=== PATIENT | female | born 1970 | race Caucasian/White ===

== ENCOUNTER 2024-10-19 14:05 | Inpatient (IN) ==
[2024-10-19 15:18] LABS: Appearance Urine Cloudy (Clear); Bacteria Urine Automated 3+ (None Seen); Cast Urine Automated >20 /lpf (0-2); Glucose Urine UA Negative (Negative)
[2024-10-19 15:19] LABS: RBC Urine Automated 0-2 /hpf (0-2)
[2024-10-19 15:21] LABS: Amphetamines+Metham, Urine Neg (Neg); MDMA (Ecstacy), Urine Neg (Neg); Marijuana, Urine Pos (Neg)
[2024-10-19 15:27] LABS: Hematocrit (blood only) 39.9 % (37.0-47.0); Hemoglobin 13.6 g/dl (12.0-16.0); Immature Granulocytes # (auto) 0.03 K/uL (0.01-0.20); Immature Granulocytes % (auto) 0.3 %; Mean Corpuscular Hemoglobin 30.0 pg (25.0-34.0); Mean Corpuscular Volume 88.1 fL (80.0-100.0); Platelet Count 215 K/uL (130-400); RDW Standard Deviation 39.4 fL (36.4-46.3); Red Blood Count 4.53 M/uL (4.20-5.40); White Blood Count 8.62 K/ul (4.8-10.8)
[2024-10-19 15:42] LABS: Acetaminophen < 3 ug/ml (10-30); Salicylate < 3.0 mg/dl (3.0-30)
[2024-10-19 15:50] LABS: Alanine Aminotransferase 17.0 U/L (7-52); Albumin Globulin Ratio 1.8 (0.9-2); Alkaline Phosphatase 54.0 U/L (34-104); Anion Gap 9.0 (3-11); Bilirubin,Total 0.6 mg/dl (0.2-1.0); Blood Urea Nitrogen 17.0 mg/dl (6-23); Calcium 9.4 mg/dl (8.6-10.3); Carbon Dioxide 26.0 mmol/L (21-32); Chloride 101.0 mmol/L (98-107); Creatinine Clr Calc Pharmacy 64.1 ml/min; Globulin 2.4 gm/dl (2.5-4.0); Glucose 119.0 mg/dl (70-99(Fasting)); Potassium 4.0 mmol/L (3.5-5.1); Sodium 136.0 mmol/L (136-145); Total Protein 6.7 gm/dl (6.0-8.3)
[2024-10-19 16:06] LABS: Thyroid Stimulating Hormone 0.403 uIu/ml (0.300-4.500)
--- NOTE | 2024-10-19 16:49 | Emergency Department Note ---
Impression & Plan Anxiety, Stress at home ED Provider Note NAME: NU RAHMAN AGE: 54 SEX: F : 1970 ARRIVES VIA: Walk-In INFORMANT: Patient, ED PROVIDER(S): Juanita Asencio MD CHIEF COMPLAINT: Medication changes, stress HPI: This is a 54-year-old female presenting for medication change request as well as increasing stress. Patient states that she has multiple stressors in her life, increased anxiety. She was on Effexor for many years. She was taken off of it temporarily and put back on. She had does not been helpful for her recently. She notes increasing stress, passive SI without active thoughts. She drinks 4 shots per day for multiple years. She takes marijuana daily multiple times a day as well. ROS: See above HPI for pertinent positives & negatives. A total of 10 systems reviewed and were otherwise negative. PAST MEDICAL HISTORY: See Below PAST SURGICAL HISTORY: See Below FAMILY HISTORY: See Below SOCIAL HISTORY: See Below HOME MEDICATIONS: See Below ALLERGIES: See Below VITALS: See Below PHYSICAL EXAMINATION: General: resting comfortably in no acute distress Head: Normocephalic and atraumatic Eyes: Normal inspection, extraocular muscles intact Ear, nose, throat: Normal external exam Neck: Normal range of motion Respiratory: speaking in full sentences, symmetric chest rise, no respiratory distress Cardiovascular: Regular rate/rhythm Extremities: moves all extremities Neuro: The patient awake and alert, appropriately conversive, symmetric faces, no focal deficits MEDICAL DECISION MAKING: This is a 54-year-old female presenting for medication request as well as increasing stress. -Patient present increasing stress. He is unclear if he has any underlying psychiatric condition including bipolar but she does not believe this is possible. -Bloodwork is reviewed showing no significant leukocytosis, anemia, electrolyte or creatinine abnormality - UTI is noted on urinalysis. Will treat with Keflex here. - Patient will benefit from inpatient stay, she is agreeable to this. Differential diagnosis: Schizophrenia, bipolar, kar, depression Independent History obtained from: Daughter Past Med/Surg History Problem List (Updated 10/19/24 @ 22:38 by Juanita Asencio MD) Stress at home (Acute) Anxiety (Acute) Carpal tunnel syndrome, right Overactive bladder Numbness and tingling in right hand Anxiety Cervical lymphadenopathy Injury of left leg (Acute) Encounter for IUD removal Encounter for IUD insertion Depression Hypertension Encounter for gynecological examination without abnormal finding Urinary urgency IUD (intrauterine device) in place Mirena 02/2020 Medical History IUD strings lost Surgical History History of delivery History of gynecologic surgery History of cryosurgery Family History Daughter Biliary atresia Brother Colorectal cancer Father Colorectal cancer Denies family history of Ovarian cancer Prostate cancer Myocardial infarction Breast cancer Social History Smoking Status: Never smoker Tobacco Type: Cigarettes Age Started Using Tobacco: 14; Age Quit Using Tobacco: 30; packs per day: 1; Second Hand Exposure: Yes; Do You Dip or Chew Tobacco: No; Hx Alcohol Use: Yes Alcohol type: hard liquor Alcohol Intake Frequency: 4 or More x per/Week Hx Substance Use: Yes Prescribed Medications: Marijuana Preferred Language: Armenian Communication Ability: Effective Visual Impairment: No Limitations Hearing Ability: Normal Grinding Operator Required: No Beliefs That Will Affect Care: None marital status: Current Living Situation: Spouse current occupational status: unemployed Feels Safe at Home: Yes Childhood Exposure to Second-Hand Smoke: Yes Diet: low carbohydrate and regular caffeine: Yes Dental Care, Regularly: Yes Physical Activity Frequency: Does not Exercise Seatbelt Use: always Sunscreen Use: No Gender Identity: Female Assistive Devices: Glasses Allergies Allergies Allergy/AdvReac Type Severity Reaction Status Date / Time No Known Allergies Allergy Unknown Verified 09/20/24 13:45 Home Meds Home Medications Medication Instructions Recorded Confirmed oxybutynin chloride 10 mg 10 mg PO HS 10/19/24 10/19/24 tablet,extended release 24 hr venlafaxine 150 mg tablet,extended 150 mg PO HS 10/19/24 10/19/24 release 24 hr Previous Rx's Medication Instructions Recorded losartan 100 mg tablet 50 mg (1/2 x 100 mg) PO DAILY #90 04/30/24 tabs Results & Data (ED) Vital Signs Vital Signs - 24 hr 10/19/24 14:08 10/19/24 14:32 10/19/24 15:51 Temperature 37.3 C Temperature Source Oral Pulse Rate 130 H 83 Pulse Rate [Apical] 101 H Respiratory Rate 18 Respiratory Effort / Characteristics Non-Labored Spontaneous Respiratory Depth Normal Respiratory Pattern Regular Blood Pressure 148/80 H Blood Pressure [Left Arm] Blood Pressure Mean 102 Blood Pressure Mean [Left Arm] Pulse Oximetry 95 Oxygen Delivery Method Room Air Sepsis Recent Fever Within 48 Hours No Sepsis New/Unexplained Change in Mental Status No Sepsis Action Taken by Nursing No Action Required 10/19/24 16:06 Temperature Temperature Source Pulse Rate Pulse Rate [Apical] 77 Respiratory Rate 21 Respiratory Effort / Characteristics Non-Labored Spontaneous Respiratory Depth Normal Respiratory Pattern Regular Blood Pressure Blood Pressure [Left Arm] 124/83 Blood Pressure Mean Blood Pressure Mean [Left Arm] 96 Pulse Oximetry 98 Oxygen Delivery Method Room Air Sepsis Recent Fever Within 48 Hours Sepsis New/Unexplained Change in Mental Status Sepsis Action Taken by Nursing Laboratory Data 10/19/24 14:56 10/19/24 14:56 Lab Results 10/19/24 10/19/24 Range/Units 14:24 14:56 WBC 8.62 (4.8-10.8) K/ul RBC 4.53 (4.20-5.40) M/uL Hgb 13.6 (12.0-16.0) g/dl Hct 39.9 (37.0-47.0) % MCV 88.1 (80.0-100.0) fL MCH 30.0 (25.0-34.0) pg MCHC 34.1 (32.0-36.0) g/dL RDW Std Deviation 39.4 (36.4-46.3) fL RDW Coeff of Roseann 12.2 (11.5-14.5) % Plt Count 215 (130-400) K/uL MPV 10.3 (9.4-12.4) fL Immature Gran % (Auto) 0.3 % Neut % (Auto) 81.1 % Lymph % (Auto) 12.2 % [place] % (Auto) 6.1 % Eos % (Auto) 0.1 % Baso % (Auto) 0.2 % Neut # (Auto) 6.98 H (1.40-6.50) K/uL Lymph # (Auto) 1.05 L (1.20-3.40) K/uL [place] # (Auto) 0.53 (0.11-0.59) K/uL Eos # (Auto) 0.01 (0.00-0.50) K/uL Baso # (Auto) 0.02 (0.00-0.20) K/uL Immature Gran # (Auto) 0.03 (0.01-0.20) K/uL Sodium 136 (136-145) mmol/L Potassium 4.0 (3.5-5.1) mmol/L Chloride 101 (98-107) mmol/L Carbon Dioxide 26 (21-32) mmol/L Anion Gap 9 (3-11) BUN 17 (6-23) mg/dl Creatinine 0.83 (0.6-1.2) mg/dl Est Cr Clr Drug Dosing 64.1 ml/min eGFR 83.72 BUN/Creatinine Ratio 20.5 H (10-20) Glucose 119 H (70-99(Fasting)) mg/dl Calcium 9.4 (8.6-10.3) mg/dl Total Bilirubin 0.6 (0.2-1.0) mg/dl AST 20 (13-39) U/L ALT 17 (7-52) U/L Alkaline Phosphatase 54 (34-104) U/L Total Protein 6.7 (6.0-8.3) gm/dl Albumin 4.3 (3.4-5.0) gm/dl Globulin 2.4 L (2.5-4.0) gm/dl Albumin/Globulin Ratio 1.8 (0.9-2) TSH 0.403 (0.300-4.500) uIu/ml Salicylates < 3.0 L (3.0-30) mg/dl Acetaminophen < 3 L (10-30) ug/ml Ethyl Alcohol mg/dL < 10.0 (<10.0) mg/dl SARS-CoV-2, RNA, NAAT NEGATIVE (NEGATIVE) Administered Medications Discontinued Medications Cephalexin HCl (Cephalexin 250 Mg Cap) 500 mg PO NOW ONE; Protocol Stop: 10/19/24 16:35 Last Admin: 10/19/24 16:50 Dose: 500 mg Documented By: JOANNA Discharge Plan Visit Data Chief Complaint: Mental Health Evaluation Stated Complaint: MED CHANGE ED Provider: Juanita Asencio Discharge Problem: Anxiety, Stress at home Patient Disposition: Admitted As Inpatient Condition: Fair Discharge Instructions Interventions: ED Discharge Assessment Last Done: 10/19/24 18:38
[2024-10-19] MEDS ORDERED: MAGNESIUM HYDROXIDE SUSP 30 ML UDC PO PRN (18:58)
[2024-10-19] MEDS ORDERED: BISMUTH SUBSALICYLATE 262 MG CHEW PO PRN (18:58)
[2024-10-19] MEDS ORDERED: SODIUM CHLORIDE 0.65% NA SOLN 45 ML (OCEAN) PRN (18:58)
[2024-10-19] MEDS ORDERED: ALUMINUM/MAGNESIUM SUSP 30 ML UDC PO PRN (18:58)
[2024-10-19] MEDS: LOSARTAN POTASSIUM 50 MG TAB PO SCH (22:51)
[2024-10-19] MEDS: VENLAFAXINE HCL XR 150 MG CAPXR PO SCH (22:52)
[2024-10-19] MEDS: MIRTAZAPINE TAB 15 MG TAB PO PRN (22:53)
--- NOTE | 2024-10-20 10:05 | History & Physical ---
Date of Service October 20, 2024 Impression / Recommendations Impression NU RAHMAN is a 54-year-old woman who currently lives in [place] with her and two children, has a history of anxiety and depression, and was admitted on 10/19/24 18:12 on a 201 voluntary commitment for worsening depression, anxiety and SI in the context of multiple stressors and previous venlafaxine withdrawal syndrome. Diagnostically consistent with major depressive disorder with anxious distress, generalized anxiety disorder with panic attacks, social anxiety disorder as well as alcohol use disorder with possible substance-induced mood symptoms as well as complicated bereavement. Discussed medication treatment options in detail. Discussed risks, benefits and alternatives. Patient would like to start and consented to mirtazapine for depression/anxiety/sleep, increasing venlafaxine XR for depression/anxiety, propranolol as off-label use for anxiety, gabapentin for nerve pain and off- label for alcohol use disorder and anxiety and naltrexone for alcohol use disorder and off-label for history of binge eating. Reviewed side effects including but not limited to: GI, SULLIVAN, increased BP with venlafaxine; sedation and weight gain with mirtazapine; dizziness and syncope with propranolol; potential for misuse, dizziness, sedation, cognitive effects with gabapentin; and GI symptoms and liver changes with naltrexone. The patient's audit score, use history suggests substance use disorder. Motivational interviewing was done as a brief intervention. Intervention was greater than 5 minutes in length and included assessing readiness to quit, advice on how to reduce or abstain and to set a specific goal for this hospitalization. cafe worker will also assist in anticipating barriers to reducing or abstaining from substance use and in problem-solving for solutions to those problems while arranging for referral to appropriate treatment. The patient is in contemplative stage with regards to transtheoretical model of change. Recommended decreasing consumption due to disinhibiting effects and potential for worsening psychiatric symptoms. Provided psychoeducation about psychiatric diagnoses and discussed recommendation for therapy which she is willing for. Overall I spent a total of 90 minutes for this admission including review of chart records, review of labwork, direct evaluation of the patient, counseling the patient, ordering medication, risk assessment, discussion with the psychiatric liason RN and documentation in the electronic health record. (1) Recurrent severe major depressive disorder with anxiety: (2) Depression with suicidal ideation: (3) Generalized anxiety disorder with panic attacks: (4) Social anxiety disorder: (5) Complicated bereavement: (6) Alcohol use disorder: (7) Carpal tunnel syndrome, right: (8) Overactive bladder: Plan 10/20/2024: The patient was admitted to the [facility] ([facility]) on q15 min checks (behavioral with suicide precautions) for safety. The patient will participate in group, recreational, and milieu therapies and will be offered additional individual and family sessions as clinically appropriate. -Increase Effexor XR to 225mg HS (she prefers HS dosing as limits GI upset) -Start mirtazapine 15mg HS -Start propranolol 10mg TID -Start gabapentin 300mg HS with 100mg TID prn for anxiety -Discontinue losartan -Consider naltrexone 25mg tomorrow with dinner -Start thiamine, multivitamin, Vit D -AWSS at risk for withdrawal -SW to explore options for outpatient therapy and potentially psychiatry Inventory Assets Strengths: supportive relationships, willing to get treatment Needs: safety and stabilization, medication adjustment, additional coping skills, increased outpatient services Suicide Risk Level Suicide Risk Level: High-Moderate (q15 min suicide checks) (increased depression and anxiety with SI but feels safe in the hospital and feels able to ask for support) Risk Factors Assessment Male: No : Yes Do You Have Access To A Gun?: Yes (her and son have multiple in the home, in safe but she can access) Health Problems: Yes Mental Health Diagnoses: Yes Substance Use Disorders: Yes Previous Attempt: No Family History of Suicide: No Previous Psychiatric Hospitalization: No Hopelessness: Yes Protective Factors Assessment Mu-Ism Beliefs: Yes : Yes Employed: Yes Stable Relationships: Yes Supportive Family: Yes Good Rapport with Provider: Yes Psychiatric History Identifying Data NU RAHMAN is a 54-year-old woman who currently lives in [place] with her and two children, has a history of anxiety and depression, and was admitted on 10/19/24 18:12 on a 201 voluntary commitment for worsening depression, anxiety and SI. Chief Complaint "This is the big factor of my breakdown, I just can't be around that many people and I just can't cope". History of Present Illness She presents for psychiatric admission for worsening depression, anxiety and SI in the context of multiple psychosocial stressors including family strain with siblings and her mother, of her brother, financial stress and new job of three weeks. Her depression and anxiety worsened after having to wean herself off of Effexor XR 150mg daily due to an insurance change in February 2024. By April her mood symptoms had spiraled to the point that she quit her job of 16 years due to increased stress and she thinks this was in large part due to feeling overwhelmed and inability to focus. She identifies this as a "breakdown". At the end of May she was able to get a new prescription for Effexor and got back to her previous dose and started to feel better by mid summer. But then she had to get a new job and this has been very overwhelming especially because "the medication isn't working like it was". Her job has given her intense anxiety due to being around so many people every day and the stress of having to do a lot on the computer. 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 She endorses depressive symptoms including social isolation, tearfulness, anhedonia, decreased motivation, self-guilt, helplessness, hopelessness, decreased appetite, and decreased sleep with difficulty falling and staying asleep. SI has been occurring since March. She endorses symptoms of anxiety including generalized worries, shakiness, muscle stiffness with headaches, stomach upset, easily overwhelmed and panic attacks every few days. Struggles a lot with social anxiety and low self-worth and low self-esteem. She also endorses PTSD symptoms of flashbacks. She reports having lost about 80lbs over the course of the year and now with restrictive eating. Hasn't eaten anything in two days. She typically eats yogurt for lunch and then eats a little bit at dinner. Some days she eats more. She struggles with moderation. Denies any purging. She drinks alcohol to feel "numb" or fall asleep. Most weekends she drinks almost all day (some weekends 3/4 of a bottle of vodka). Before starting her new job she went 5 days without alcohol and a few days after starting work but then as she got into a routine she started drinking in the evenings again. Typically 2-4 shots of liquor starting around 4pm. She didn't drink any alcohol for almost 20 years but she started drinking heavily after her brother 5 years ago to cope with grief. She is currently prescribed Effexor 150mg HS. Psychiatric ROS notable for no current nor history of symptoms of kar, psychosis, OCD nor eating disorder. History of restrictive eating. No history of self-harm. Past Psychiatric History Current Psychiatric Diagnosis: PTSD, Depression, Anxiety Outpatient Services: none Previous Psych Admissions: none Do You Have Access To A Gun?: Yes (her and son have multiple in the home, in safe but she can access) History of Previous Suicide Attempt: No Past Medication Trials: took Effexor XR 150mg for 20 years with good effect Past Head Trauma/Neuro History History of Concussion/Seizure: No Allergies Allergy/AdvReac Type Severity Reaction Status Date / Time No Known Allergies Allergy Unknown Verified 10/20/24 11:37 Home Medications Medication Instructions Recorded Confirmed Type losartan 100 mg tablet 50 mg (1/2 x 100 mg) PO DAILY #90 04/30/24 10/19/24 Rx tabs oxybutynin chloride 10 mg 10 mg PO HS 10/19/24 10/19/24 History tablet,extended release 24 hr venlafaxine 150 mg tablet,extended 150 mg PO HS 10/19/24 10/19/24 History release 24 hr Family History Family History of: Depression, Anxiety, Alcoholism/Drug Abuse (siblings) and Suicide Completion (boyfriend by suicide years ago) Family Mental Health History Comment: Mother, Brother Alcohol History Hx of Alcohol Use Over the Past 12 Months: Yes (daily use "to help sleep") AUDIT Total Score: 8 Likes that it makes her "numb", "helps with sleep", nothing that she doesn't like about it. She does feel like the amount she uses is a problem but she wants to drink and feel numb. Smoking Use Have You Smoked or Used Tobacco Products in the Last 30 Days: No Smoking Status: Never smoker Substance History Hx of Prescription Med Misuse Over the Past 12 Months: No Hx of Over the Counter Med Misuse Over the Past 12 Months: No Hx of Inhalent Misuse Over the Past 12 Months: No Hx of Organic Substance Use Over the Past 12 Months: Yes (Medical Marijuana daily) Hx of Illegal Substances/Street Drug Use Over Past 12 Months: No Problems as a Result of Past Substance Use: None Identified Problems as a Result of Past Substance Use Comments: negative impact on mood/mental health Personal History Living Arrangements: Home Highest Grade Completed: High School Graduate 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 Marital Status: Beliefs That Will Affect Care: None Current Legal Problems: No Hx Legal Problems: No Hx Traumatic Life Events: Yes Patient History Medical History IUD strings lost IUD seen U/S 01/2020 Surgical History History of delivery History of gynecologic surgery vaginal sling operation for stress incontinence History of cryosurgery Family History Daughter Biliary atresia Brother Colorectal cancer Father Colorectal cancer Denies family history of Ovarian cancer Prostate cancer Myocardial infarction Breast cancer Social History Smoking Status: Never smoker Tobacco Type: Cigarettes Age Started Using Tobacco: 14; Age Quit Using Tobacco: 30; packs per day: 1; Second Hand Exposure: Yes; Do You Dip or Chew Tobacco: No; Hx Alcohol Use: Yes Alcohol type: hard liquor Alcohol Intake Frequency: 4 or More x per/Week Hx Substance Use: Yes Prescribed Medications: Marijuana Preferred Language: Tristanian Communication Ability: Effective Visual Impairment: No Limitations Hearing Ability: Normal Slunk Skin Curer Required: No Beliefs That Will Affect Care: None marital status: Current Living Situation: Spouse current occupational status: unemployed Feels Safe at Home: Yes Childhood Exposure to Second-Hand Smoke: Yes Diet: low carbohydrate and regular caffeine: Yes Dental Care, Regularly: Yes Physical Activity Frequency: Does not Exercise Seatbelt Use: always Sunscreen Use: No Gender Identity: Female Assistive Devices: Glasses Review of Systems Review of Systems: All systems reviewed & are unremarkable except as noted in HPI & below (carpal tunnel, headaches) Physical Exam Psychiatric: Orientation: alert and oriented x 3 Apperance: appropriately dressed and appropriately groomed Eye Contact: + fair eye contact Motor Behavior: no abnormal motor movements Speech: normal rate/rhythm/volume of speech Affect: + depressed affect and + anxious affect Mood: + depressed mood and + anxious mood Thought Process: goal directed thought process Thought Content: + cognitive distortions, reality based without delusions, + worthlessness and + guilt Suicidal Thoughts: denies suicidal plan and denies suicidal intent; + reports suicidal thoughts Homicidal Thoughts: denies homi cidal thoughts Hallucinations: no auditory hallucinations and no visual hallucinations Cognition: recent memory grossly intact, remote memory grossly intact, attention grossly intact and language grossly intact Estimated Intelligence: consistent with education level Insight: + fair insight Judgment: + fair judgement Vital Signs (Past 24 Hours): Last Vital Signs Temp 37.2 C 10/20/24 06:11 Pulse 104 H 10/20/24 06:11 Resp 18 10/20/24 06:11 BP 139/82 10/20/24 06:11 Pulse Ox 98 10/20/24 06:11 O2 Del Method Room Air 10/20/24 06:11 Exam Statement: A physical exam was performed in the ED by Dr. Asencio for the purposes of medical clearance. I accept that physical as correct and adequate for the purposes of the inpatient physical exam. Results & Data ([facility]) Laboratory Results Laboratory Results - last 24 hr 10/19/24 10/19/24 10/19/24 14:24 14:56 Unknown WBC 8.62 RBC 4.53 Hgb 13.6 Hct 39.9 MCV 88.1 MCH 30.0 MCHC 34.1 RDW Std Deviation 39.4 RDW Coeff of Roseann 12.2 Plt Count 215 MPV 10.3 Immature Gran % (Auto) 0.3 Neut % (Auto) 81.1 Lymph % (Auto) 12.2 [place] % (Auto) 6.1 Eos % (Auto) 0.1 Baso % (Auto) 0.2 Neut # (Auto) 6.98 H Lymph # (Auto) 1.05 L [place] # (Auto) 0.53 Eos # (Auto) 0.01 Baso # (Auto) 0.02 Immature Gran # (Auto) 0.03 Sodium 136 Potassium 4.0 Chloride 101 Carbon Dioxide 26 Anion Gap 9 BUN 17 Creatinine 0.83 Est Cr Clr Drug Dosing 64.1 eGFR 83.72 BUN/Creatinine Ratio 20.5 H Glucose 119 H Calcium 9.4 Total Bilirubin 0.6 AST 20 ALT 17 Alkaline Phosphatase 54 Total Protein 6.7 Albumin 4.3 Globulin 2.4 L Albumin/Globulin Ratio 1.8 TSH 0.403 Urine Color Yellow Urine Appearance Cloudy A Urine pH 5.5 Ur Specific [place] 1.023 Urine Protein 2+ H Urine Glucose (UA) Negative Urine Ketones Trace H Urine Blood Negative Urine Nitrite Positive A Urine Bilirubin Negative Urine Urobilinogen Negative Ur Leukocyte Esterase 1+ H Urine WBC (Auto) 11-20 H Urine RBC (Auto) 0-2 U Hyaline Cast (Auto) >20 H U Epithel Cells (Auto) 11-20 H Urine Bacteria (Auto) 3+ H Calcium Oxalate Crystal Present A Hyaline Casts Present A Urine Mucus Present A Urine Comment Salicylates < 3.0 L Urine Opiates Screen Neg Ur Methadone, Qual Neg Urine Fentanyl Screen Neg Acetaminophen < 3 L Urine Barbiturates Neg Ur Phencyclidine (PCP) Neg U Amphetamin/Meth Scrn Neg MDMA (Ecstasy) Screen Neg U Benzodiazepines Scrn Neg Ur Cocaine Metabolite Neg U Marijuana (THC) Screen Pos H U Marijuana THC Carboxy Pending Drug Screen Comment Pending Ethyl Alcohol mg/dL < 10.0 SARS-CoV-2, RNA, NAAT NEGATIVE Current Inpatient Medications Current Inpatient Medications: Current Inpatient Medications Acetaminophen (Acetaminophen 325 Mg Tab) 650 mg PO Q4H PRN PRN Reason: Headache or Minor Fever Stop: 11/18/24 18:57 Al Hydrox/Mg Hydrox/Simethicone (Aluminum/Magnesium Susp 30 Ml Udc) 30 ml PO Q4H PRN PRN Reason: GI Upset Stop: 11/18/24 18:57 Bismuth Subsalicylate (Bismuth Subsalicylate 262 Mg Chew) 2 tab PO Q30M PRN PRN Reason: Loose Stool/Diarrhea Stop: 11/18/24 18:57 Hydroxyzine HCl (Hydroxyzine Hcl 25 Mg Tab) 50 mg PO HSZ PRN PRN Reason: Insomnia Stop: 11/18/24 18:57 Hydroxyzine HCl (Hydroxyzine Hcl 25 Mg Tab) 25 mg PO Q4H PRN PRN Reason: Anxiety Stop: 11/18/24 18:57 Losartan Potassium (Losartan Potassium 50 Mg Tab) 50 mg PO HS L[place] Stop: 11/18/24 21:59 Last Admin: 10/19/24 22:51 Dose: 50 mg Magnesium Hydroxide (Magnesium Hydroxide Susp 30 Ml Udc) 30 ml PO DAILY PRN PRN Reason: Constipation Stop: 11/18/24 18:57 Mirtazapine (Mirtazapine Tab 15 Mg Tab) 15 mg PO HS PRN PRN Reason: Insomnia Stop: 11/18/24 21:59 Last Admin: 10/19/24 22:53 Dose: 15 mg Oxybutynin Chloride (Oxybutynin Chloride 5 Mg Tab) 10 mg PO HS L[place] Stop: 11/18/24 22:30 Last Admin: 10/19/24 22:52 Dose: 10 mg Sodium Chloride (Sodium Chloride 0.65% Na Soln 45 Ml ([place])) 1 - 2 sprays NA PRN PRN PRN Reason: Nasal Dryness/Congestion Stop: 11/18/24 18:57 Venlafaxine HCl (Venlafaxine Hcl Xr 150 Mg Capxr) 150 mg PO HS L[place] Stop: 11/18/24 22:44 Last Admin: 10/19/24 22:52 Dose: 150 mg
[2024-10-20] MEDS ORDERED: GABAPENTIN 100 MG CAP PO PRN (12:17)
[2024-10-20] MEDS: CHOLECALCIFEROL 25 MCG (1000 UNITS) TAB PO SCH (12:42)
[2024-10-20] MEDS: PROPRANOLOL HCL 10 MG TAB PO SCH (12:42)
[2024-10-20] MEDS: CEROVITE ADV FORMULA TAB PO SCH (12:42)
[2024-10-20] MEDS: THIAMINE HCL 50 MG TABLET PO SCH (12:42)
[2024-10-20] MEDS: ACETAMINOPHEN 325 MG TAB PO PRN (12:46)
[2024-10-20] MEDS ORDERED: Ativan PO Alcohol Withdrawal--Active Protocol PO PRN (12:57)
[2024-10-20] MEDS ORDERED: LORazepam 1 MG TAB PO PRN ×3 (12:57)
[2024-10-20] MEDS: LOSARTAN POTASSIUM 50 MG TAB PO SCH (15:02)
[2024-10-20] MEDS: OXYBUTYNIN CHLORIDE XL 5 MG TABCR PO SCH (20:07)
[2024-10-20] MEDS: MIRTAZAPINE TAB 15 MG TAB PO SCH (20:08)
[2024-10-20] MEDS: GABAPENTIN 300 MG CAP PO SCH (20:08)
[2024-10-20] MEDS: VENLAFAXINE HCL XR 75 MG CAPXR PO SCH (20:08)
[2024-10-20] MEDS ORDERED: VENLAFAXINE HCL XR 150 MG CAPXR PO SCH (22:00)
--- NOTE | 2024-10-21 09:08 | Psychiatric Progress Note ---
Date of Service October 21, 2024 Impression / Recommendations Impression NU RAHMAN is a 54-year-old woman who currently lives in [place] with her and two children, has a history of anxiety and depression, and was admitted on 10/19/24 18:12 on a 201 voluntary commitment for worsening depression, anxiety and SI in the context of multiple stressors and previous venlafaxine withdrawal syndrome. Diagnostically consistent with major depressive disorder with anxious distress, generalized anxiety disorder with panic attacks, social anxiety disorder as well as alcohol use disorder with possible substance-induced mood symptoms as well as complicated bereavement. A: Ongoing depression and anxiety. Slept better last night with new medications. Tolerating changes so far. Reviewed urine microbiology with pharmacy who recommends no antibiotic at this time given absence of symptoms. If symptoms emerged then recommended treatment would be: fosfomycin 3g po for a single dose. She consents to starting naltrexone. MNPR due to contact precautions and need for private bathroom due to EColi with ESBL from urine culture Overall, I spent a total of 38 minutes on this case including meeting with the patient, reviewing the chart, nursing report, multidisciplinary team meeting, orders, and documentation and discussion with pharmacist. (1) Recurrent severe major depressive disorder with anxiety: (2) Depression with suicidal ideation: (3) Generalized anxiety disorder with panic attacks: (4) Social anxiety disorder: (5) Complicated bereavement: (6) Alcohol use disorder: (7) Carpal tunnel syndrome, right: (8) Overactive bladder: Plan 10/21/2024: -Start naltrexone 25mg po with dinner 10/20/2024: The patient was admitted to the [facility] ([facility] mental health unit) on q15 min checks (behavioral with suicide precautions) for safety. The patient will participate in group, recreational, and milieu therapies and will be offered additional individual and family sessions as clinically appropriate. -Increase Effexor XR to 225mg HS (she prefers HS dosing as limits GI upset) -Start mirtazapine 15mg HS -Start propranolol 10mg TID -Start gabapentin 300mg HS with 100mg TID prn for anxiety -Discontinue losartan -Consider naltrexone 25mg tomorrow with dinner -Start thiamine, multivitamin, Vit D -AWSS at risk for withdrawal -SW to explore options for outpatient therapy and potentially psychiatry Inventory Assets Strengths: supportive relationships, willing to get treatment Needs: safety and stabilization, medication adjustment, additional coping skills, increased outpatient services Suicide Risk Level Suicide Risk Level: High-Moderate (q15 min suicide checks) (increased depression and anxiety with SI but feels safe in the hospital and feels able to ask for support) Risk Factors Assessment Male: No : Yes Do You Have Access To A Gun?: Yes (n/a) Health Problems: Yes Mental Health Diagnoses: Yes Substance Use Disorders: Yes Previous Attempt: No Family History of Suicide: No Previous Psychiatric Hospitalization: No Hopelessness: Yes Protective Factors Assessment Je[employer] Beliefs: Yes : Yes Employed: Yes Stable Relationships: Yes Supportive Family: Yes Good Rapport with Provider: Yes Interval History Identifying Information NU RAHMAN is a 54-year-old woman who currently lives in [place] with her and two children, has a history of anxiety and depression, and was admitted on 10/19/24 18:12 on a 201 voluntary commitment for worsening depression, anxiety and SI. Chief Complaint "I was sad this morning but I talked to people and got some stuff out". Review of Systems Sleep Information Total Hours of Sleep: 8.75 Meal Information Percent Meal Consumed - Breakfast: 75 Percent Meal Consumed - Lunch: 90 Percent Meal Consumed - Dinner: 100 Subjective Subjective Patient was seen & assessed and interval progress reviewed with treatment team. Slept well. Attending groups. Headache yesterday. Low mood this morning with sadness and anxiety which she attributes in part to guilt about not being at work and not being able to work. She isn't sure if propranolol is helping with physical anxiety symptoms. Reviewed option to use gabapentin prn. Did find some relief from anxiety after processing with staff. Today reports some ongoing neck muscle tension and general weakness but otherwise no physical complaints and no side effects from the medications so far. She slept well overnight and doesn't recall having prominent carpel tunnel pain issues. Reviewed results of urine microbiology. She reports urinary frequency but she has this at baseline, she denies any burning with urination nor pain. Physical Exam Psychiatric Orientation: alert and oriented x 3 Apperance: appropriately dressed and appropriately groomed Eye Contact: + fair eye contact Motor Behavior: no abnormal motor movements Speech: normal rate/rhythm/volume of speech Affect: + depressed affect and + anxious affect Mood: + depressed mood and + anxious mood Thought Process: goal directed thought process Thought Content: + cognitive distortions, reality based without delusions, + worthlessness and + guilt Suicidal Thoughts: denies suicidal plan and denies suicidal intent; + reports suicidal thoughts Homicidal Thoughts: denies homicidal thoughts Hallucinations: no auditory hallucinations and no visual hallucinations Cognition: recent memory grossly intact, remote memory grossly intact, attention grossly intact and language grossly intact Estimated Intelligence: consistent with education level Insight: + fair insight Judgment: + fair judgement Vital Signs (Past 24 Hours) Last Vital Signs Temp 36.4 C L 10/21/24 06:17 Pulse 83 10/21/24 06:17 Resp 18 10/21/24 06:17 BP 124/72 10/21/24 06:25 Pulse Ox 99 10/21/24 06:17 O2 Del Method Room Air 10/21/24 06:17 Results & Data ([facility]) Current Inpatient Medications Current Inpatient Medications: Current Inpatient Medications Acetaminophen (Acetaminophen 325 Mg Tab) 650 mg PO Q4H PRN PRN Reason: Headache or Minor Fever Stop: 11/18/24 18:57 Last Admin: 10/20/24 12:46 Dose: 650 mg Al Hydrox/Mg Hydrox/Simethicone (Aluminum/Magnesium Susp 30 Ml Udc) 30 ml PO Q4H PRN PRN Reason: GI Upset Stop: 11/18/24 18:57 Bismuth Subsalicylate (Bismuth Subsalicylate 262 Mg Chew) 2 tab PO Q30M PRN PRN Reason: Loose Stool/Diarrhea Stop: 11/18/24 18:57 Gabapentin (Gabapentin 300 Mg Cap) 300 mg PO BID LOURDES Stop: 11/19/24 20:59 Last Admin: 10/21/24 08:30 Dose: 300 mg Gabapentin (Gabapentin 100 Mg Cap) 100 mg PO TID PRN PRN Reason: panic attack/anxiety Stop: 11/19/24 13:59 Hydroxyzine HCl (Hydroxyzine Hcl 25 Mg Tab) 50 mg PO HSZ PRN PRN Reason: Insomnia Stop: 11/18/24 18:57 Hydroxyzine HCl (Hydroxyzine Hcl 25 Mg Tab) 25 mg PO Q4H PRN PRN Reason: Anxiety Stop: 11/18/24 18:57 Lorazepam (Lorazepam 1 Mg Tab) 1 mg PO UD PRN; Protocol PRN Reason: EtOH Withdrawal AWSS Score 6,7 Stop: 11/19/24 12:56 Lorazepam (Lorazepam 1 Mg Tab) 3 mg PO ONCE PRN; Protocol PRN Reason: EtOH Withdrawal AWSS Score 10 & above Lorazepam (Lorazepam 1 Mg Tab) 2 mg PO UD PRN; Protocol PRN Reason: EtOH Withdrawal AWSS Score 8,9 Stop: 11/19/24 12:56 Magnesium Hydroxide (Magnesium Hydroxide Susp 30 Ml Udc) 30 ml PO DAILY PRN PRN Reason: Constipation Stop: 11/18/24 18:57 Mirtazapine (Mirtazapine Tab 15 Mg Tab) 15 mg PO HS LOURDES Stop: 11/19/24 21:59 Last Admin: 10/20/24 20:08 Dose: 15 mg Multivitamins/Minerals (Cerovite Adv Formula Tab) 1 tab PO QAM LOURDES Stop: 11/19/24 12:29 Last Admin: 10/21/24 08:30 Dose: 1 tab Oxybutynin Chloride (Oxybutynin Chloride Xl 5 Mg Tabcr) 10 mg PO HS LOURDES Stop: 11/19/24 21:59 Last Admin: 10/20/24 20:07 Dose: 10 mg Propranolol HCl (Propranolol Hcl 10 Mg Tab) 10 mg PO TID LOURDES Stop: 11/19/24 13:59 Last Admin: 10/21/24 08:30 Dose: 10 mg Sodium Chloride (Sodium Chloride 0.65% Na Soln 45 Ml ([place])) 1 - 2 sprays NA PRN PRN PRN Reason: Nasal Dryness/Congestion Stop: 11/18/24 18:57 Thiamine HCl (Thiamine Hcl 50 Mg Tablet) 50 mg PO QAM LOURDES Stop: 11/19/24 12:29 Last Admin: 10/21/24 08:31 Dose: 50 mg Venlafaxine HCl (Venlafaxine Hcl Xr 75 Mg Capxr) 225 mg PO HS LOURDES Stop: 11/19/24 21:59 Last Admin: 10/20/24 20:08 Dose: 225 mg Vitamin D (Cholecalciferol 25 Mcg (1000 Units) Tab) 25 mcg PO QAM LOURDES Stop: 11/19/24 12:29 Last Admin: 10/21/24 08:30 Dose: 25 mcg Mental Health & Subst Abuse Tx Psychiatrist Time of Appointment with Psychiatrist: n/a Therapist Name of Therapist: n/a Time of Therapist Appointment: n/a Gaming Manager Name of Gaming Manager: n/a Time of Appointment with Gaming Manager: n/a Post Discharge Appointments Primary Care Physician Name Of Family Doctor/PCP: Swetha Grant
[2024-10-21] MEDS: NALTREXONE HCL 50 MG TAB PO SCH (17:32)
--- NOTE | 2024-10-22 08:38 | Psychiatric Progress Note ---
Date of Service October 22, 2024 Impression / Recommendations Impression NU RAHMAN is a 54-year-old woman who currently lives in [place] with her and two children, has a history of anxiety and depression, and was admitted on 10/19/24 18:12 on a 201 voluntary commitment for worsening depression, anxiety and SI in the context of multiple stressors and previous venlafaxine withdrawal syndrome. Diagnostically consistent with major depressive disorder with anxious distress, generalized anxiety disorder with panic attacks, social anxiety disorder as well as alcohol use disorder with possible substance-induced mood symptoms as well as complicated bereavement. A: Ongoing depression and anxiety but showing some slight improvement from propranolol and sleeping better. Support meeting tomorrow is likely to increase her anxiety as it will bring up many painful things she has been coping with via avoidance or drinking. AWSS discontinued given she has not been scoring. MNPR due to contact precautions and need for private bathroom due to EColi with ESBL from urine culture Overall, I spent a total of 36 minutes on this case including meeting with the patient, reviewing the chart, nursing report, multidisciplinary team meeting, orders, and documentation and discussion with pharmacist. (1) Recurrent severe major depressive disorder with anxiety: (2) Depression with suicidal ideation: (3) Generalized anxiety disorder with panic attacks: (4) Social anxiety disorder: (5) Complicated bereavement: (6) Alcohol use disorder: (7) Carpal tunnel syndrome, right: (8) Overactive bladder: Plan 10/22/2024: -Continue current medications and tx plan 10/21/2024: -Start naltrexone 25mg po with dinner 10/20/2024: The patient was admitted to the [facility] ([facility] mental health unit) on q15 min checks (behavioral with suicide precautions) for safety. The patient will participate in group, recreational, and milieu therapies and will be offered additional individual and family sessions as clinically appropriate. -Increase Effexor XR to 225mg HS (she prefers HS dosing as limits GI upset) -Start mirtazapine 15mg HS -Start propranolol 10mg TID -Start gabapentin 300mg HS with 100mg TID prn for anxiety -Discontinue losartan -Consider naltrexone 25mg tomorrow with dinner -Start thiamine, multivitamin, Vit D -AWSS at risk for withdrawal -SW to explore options for outpatient therapy and potentially psychiatry Inventory Assets Strengths: supportive relationships, willing to get treatment Needs: safety and stabilization, medication adjustment, additional coping skills, increased outpatient services Suicide Risk Level Suicide Risk Level: Moderate (q15 min suicide checks) (increased depression and anxiety with SI but feels safe in the hospital and feels able to ask for support) Risk Factors Assessment Male: No : Yes Do You Have Access To A Gun?: Yes (n/a) Health Problems: Yes Mental Health Diagnoses: Yes Substance Use Disorders: Yes Previous Attempt: No Family History of Suicide: No Previous Psychiatric Hospitalization: No Hopelessness: Yes Protective Factors Assessment [employer] Beliefs: Yes : Yes Employed: Yes Stable Relationships: Yes Supportive Family: Yes Good Rapport with Provider: Yes Interval History Identifying Information NU RAHMAN is a 54-year-old woman who currently lives in [place] with her and two children, has a history of anxiety and depression, and was admitted on 10/19/24 18:12 on a 201 voluntary commitment for worsening depression, anxiety and SI. Chief Complaint "If I start thinking about I stuff I get sad". Review of Systems Sleep Information Total Hours of Sleep: 7.5 Meal Information Percent Meal Consumed - Breakfast: 75 Percent Meal Consumed - Lunch: 90 Percent Meal Consumed - Dinner: 100 Subjective Subjective Patient was seen & assessed and interval progress reviewed with nursing and social work. Slept well. Attending groups. Fluctuations in her mood, feels better when processing and distracted but depression and anxiety worsen when she thinks about thigns waiting for her outside the hospital like her job and anticipating discussion with her and son. Discusses that her son lives only a few minutes away but that she barely sees her grandson due to family issues. She also hopes her will be willing to make some changes so that their marriage can be better. Feels the medications are helping lessen her anxiety. Denies any side effects. Physical Exam Psychiatric Orientation: alert and oriented x 3 Apperance: appropriately dressed and appropriately groomed Eye Contact: + fair eye contact Motor Behavior: no abnormal motor movements Speech: normal rate/rhythm/volume of speech Affect: + depressed affect and + anxious affect Mood: + depressed mood and + anxious mood Thought Process: goal directed thought process Thought Content: + cognitive distortions, reality based without delusions, + worthlessness and + guilt Suicidal Thoughts: denies suicidal plan and denies suicidal intent; + reports suicidal thoughts Homicidal Thoughts: denies homicidal thoughts Hallucinations: no auditory hallucinations and no visual hallucinations Cognition: recent memory grossly intact, remote memory grossly intact, attention grossly intact and language grossly intact Estimated Intelligence: consistent with education level Insight: + fair insight Judgment: + fair judgement Vital Signs (Past 24 Hours) Last Vital Signs Temp 36.6 C 10/22/24 06:49 Pulse 79 10/22/24 06:49 Resp 18 10/22/24 06:49 BP 117/75 10/22/24 06:49 Pulse Ox 97 10/22/24 06:49 O2 Del Method Room Air 10/22/24 06:49 Results & Data ([facility]) Current Inpatient Medications Current Inpatient Medications: Current Inpatient Medications Acetaminophen (Acetaminophen 325 Mg Tab) 650 mg PO Q4H PRN PRN Reason: Headache or Minor Fever Stop: 11/18/24 18:57 Last Admin: 10/20/24 12:46 Dose: 650 mg Al Hydrox/Mg Hydrox/Simethicone (Aluminum/Magnesium Susp 30 Ml Udc) 30 ml PO Q4H PRN PRN Reason: GI Upset Stop: 11/18/24 18:57 Bismuth Subsalicylate (Bismuth Subsalicylate 262 Mg Chew) 2 tab PO Q30M PRN PRN Reason: Loose Stool/Diarrhea Stop: 11/18/24 18:57 Gabapentin (Gabapentin 300 Mg Cap) 300 mg PO BID LOURDES Stop: 11/19/24 20:59 Last Admin: 10/21/24 20:20 Dose: 300 mg Gabapentin (Gabapentin 100 Mg Cap) 100 mg PO TID PRN PRN Reason: panic attack/anxiety Stop: 11/19/24 13:59 Hydroxyzine HCl (Hydroxyzine Hcl 25 Mg Tab) 50 mg PO HSZ PRN PRN Reason: Insomnia Stop: 11/18/24 18:57 Hydroxyzine HCl (Hydroxyzine Hcl 25 Mg Tab) 25 mg PO Q4H PRN PRN Reason: Anxiety Stop: 11/18/24 18:57 Magnesium Hydroxide (Magnesium Hydroxide Susp 30 Ml Udc) 30 ml PO DAILY PRN PRN Reason: Constipation Stop: 11/18/24 18:57 Mirtazapine (Mirtazapine Tab 15 Mg Tab) 15 mg PO HS LOURDES Stop: 11/19/24 21:59 Last Admin: 10/21/24 20:20 Dose: 15 mg Multivitamins/Minerals (Cerovite Adv Formula Tab) 1 tab PO QAM LOURDES Stop: 11/19/24 12:29 Last Admin: 10/21/24 08:30 Dose: 1 tab Naltrexone HCl (Naltrexone Hcl 50 Mg Tab) 25 mg PO DAILYBD LOURDES Stop: 11/20/24 17:14 Last Admin: 10/21/24 17:32 Dose: 25 mg Oxybutynin Chloride (Oxybutynin Chloride Xl 5 Mg Tabcr) 10 mg PO HS LOURDES Stop: 11/19/24 21:59 Last Admin: 10/21/24 20:19 Dose: 10 mg Propranolol HCl (Propranolol Hcl 10 Mg Tab) 10 mg PO TID LOURDES Stop: 11/19/24 13:59 Last Admin: 10/21/24 20:20 Dose: 10 mg Sodium Chloride (Sodium Chloride 0.65% Na Soln 45 Ml ([place])) 1 - 2 sprays NA PRN PRN PRN Reason: Nasal Dryness/Congestion Stop: 11/18/24 18:57 Thiamine HCl (Thiamine Hcl 50 Mg Tablet) 50 mg PO QAM LOURDES Stop: 11/19/24 12:29 Last Admin: 10/21/24 08:31 Dose: 50 mg Venlafaxine HCl (Venlafaxine Hcl Xr 75 Mg Capxr) 225 mg PO HS LOURDES Stop: 11/19/24 21:59 Last Admin: 10/21/24 20:20 Dose: 225 mg Vitamin D (Cholecalciferol 25 Mcg (1000 Units) Tab) 25 mcg PO QAM LOURDES Stop: 11/19/24 12:29 Last Admin: 10/21/24 08:30 Dose: 25 mcg Mental Health & Subst Abuse Tx Psychiatrist [facility] Date Of Appointment With Psychiatric Provider: 10/31/24 Time of Appointment with Psychiatrist: 9:15 Psychiatric Appointment Comment: Be there at 8:15 to complete paperwork prior to appointment Therapist Name of Therapist: n/a Time of Therapist Appointment: n/a Instructional Writer Name of Instructional Writer: n/a Time of Appointment with Instructional Writer: n/a Post Discharge Appointments Primary Care Physician [facility] Date of Future Appointment with PCP: 10/31/24 Time of Appointment with PCP: 3:40p Provider Appointment Comment: [address], [place] [address] Contact Information Discharge Discharge Address: [facility] [address], [place] [id number]
[2024-10-23 06:48] VITALS: RESP 16
--- NOTE | 2024-10-23 08:55 | Psychiatric Progress Note ---
Date of Service October 23, 2024 Impression / Recommendations Impression NU RAHMAN is a 54-year-old woman who currently lives in [place] with her and two children, has a history of anxiety and depression, and was admitted on 10/19/24 18:12 on a 201 voluntary commitment for worsening depression, anxiety and SI in the context of multiple stressors and previous venlafaxine withdrawal syndrome. Diagnostically consistent with major depressive disorder with anxious distress, generalized anxiety disorder with panic attacks, social anxiety disorder as well as alcohol use disorder with possible substance-induced mood symptoms as well as complicated bereavement. A: Ongoing depression and anxiety but showing steady progress. Ongoing psychoeducation and reviewed strategies for finding ways to build rapport and validation with her . Constipation possibly from Effexor vs mirtazapine. Colace ineffective so far, adding miralax and senna prn. Increasing naltrexone tonight. MNPR due to contact precautions and need for private bathroom due to EColi with ESBL from urine culture Overall, I spent a total of 38 minutes on this case including meeting with the patient, reviewing the chart, nursing report, multidisciplinary team meeting, orders, and documentation and discussion with pharmacist. (1) Recurrent severe major depressive disorder with anxiety: (2) Depression with suicidal ideation: (3) Generalized anxiety disorder with panic attacks: (4) Social anxiety disorder: (5) Complicated bereavement: (6) Alcohol use disorder: (7) Carpal tunnel syndrome, right: (8) Overactive bladder: Plan 10/23/2024: -Increase naltrexone to 50mg qdinner -move effexor XR 225mg to QAM 10/22/2024: -Continue current medications and tx plan 10/21/2024: -Start naltrexone 25mg po with dinner 10/20/2024: The patient was admitted to the [facility] ([facility]) on q15 min checks (behavioral with suicide precautions) for safety. The patient will participate in group, recreational, and milieu therapies and will be offered additional individual and family sessions as clinically appropriate. -Increase Effexor XR to 225mg HS (she prefers HS dosing as limits GI upset) -Start mirtazapine 15mg HS -Start propranolol 10mg TID -Start gabapentin 300mg HS with 100mg TID prn for anxiety -Discontinue losartan -Consider naltrexone 25mg tomorrow with dinner -Start thiamine, multivitamin, Vit D -AWSS at risk for withdrawal -SW to explore options for outpatient therapy and potentially psychiatry Inventory Assets Strengths: supportive relationships, willing to get treatment Needs: safety and stabilization, medication adjustment, additional coping skills, incre ased outpatient services Suicide Risk Level Suicide Risk Level: Moderate (q15 min suicide checks) (increased depression and anxiety with SI but feels safe in the hospital and feels able to ask for support) Suicide Risk Level Comments: High-Moderate due to severe depression with SI with plan prior to admission but feels safe in the hospital, able to safety contract and agrees to let nursing/staff know should they develop plan, intent or feel unable to remain safe. Risk Factors Assessment Male: No : Yes Do You Have Access To A Gun?: Yes (n/a) Health Problems: Yes Mental Health Diagnoses: Yes Substance Use Disorders: Yes Previous Attempt: No Family History of Suicide: No Previous Psychiatric Hospitalization: No Hopelessness: Yes Protective Factors Assessment Confucianism Beliefs: Yes : Yes Employed: Yes Stable Relationships: Yes Supportive Family: Yes Good Rapport with Provider: Yes Interval History Identifying Information NU RAHMAN is a 54-year-old woman who currently lives in [place] with her and two children, has a history of anxiety and depression, and was admitted on 10/19/24 18:12 on a 201 voluntary commitment for worsening depression, anxiety and SI. Chief Complaint "I get sad at times but doing good". Review of Systems Sleep Information Total Hours of Sleep: 8.75 Meal Information Percent Meal Consumed - Breakfast: 100 Percent Meal Consumed - Lunch: 75 Percent Meal Consumed - Dinner: 90 Subjective Subjective Patient was seen & assessed and interval progress reviewed with treatment team. Her daughter and son visited last evening. Sleeping well. Had support meeting and discussed with her and son changes she hopes can occur moving forward to help them be closer as a family. Discussed that she managed everything for so many years and would like her to be able to recognize this and validate all of her contributions. Discussed ways she may broach this topic with him moving forward. She is having constipation but denies any other medication side effects. Consents to increasing naltrexone. Would like to move Effexor to morning dosing. Sleeping well with mirtazapine. Anxiety responding well to medication changes so far. Still feels overwhelmed by depression when she's not distracted. Physical Exam Psychiatric Orientation: alert and oriented x 3 Apperance: appropriately dressed and appropriately groomed Eye Contact: good eye contact Motor Behavior: no abnormal motor movements Speech: normal rate/rhythm/volume of speech Affect: + depressed affect and + anxious affect Mood: + depressed mood and + anxious mood Thought Process: goal directed thought process Thought Content: + cognitive distortions, reality based without delusions, + worthlessness and + guilt Suicidal Thoughts: denies suicidal plan and denies suicidal intent; + reports suicidal thoughts Homicidal Thoughts: denies homicidal thoughts Hallucinations: no auditory hallucinations and no visual hallucinations Cognition: recent memory grossly intact, remote memory grossly intact, attention grossly intact and language grossly intact Estimated Intelligence: consistent with education level Insight: + fair insight Judgment: + fair judgement Vital Signs (Past 24 Hours) Last Vital Signs Temp 36.4 C 10/23/24 06:00 Pulse 72 10/22/24 19:47 Resp 16 10/23/24 06:00 BP 125/75 10/23/24 06:00 Pulse Ox 98 10/23/24 06:00 O2 Del Method Room Air 10/23/24 06:00 Results & Data ([facility]) Current Inpatient Medications Current Inpatient Medications: Current Inpatient Medications Acetaminophen (Acetaminophen 325 Mg Tab) 650 mg PO Q4H PRN PRN Reason: Headache or Minor Fever Stop: 11/18/24 18:57 Last Admin: 10/20/24 12:46 Dose: 650 mg Al Hydrox/Mg Hydrox/Simethicone (Aluminum/Magnesium Susp 30 Ml Udc) 30 ml PO Q4H PRN PRN Reason: GI Upset Stop: 11/18/24 18:57 Bismuth Subsalicylate (Bismuth Subsalicylate 262 Mg Chew) 2 tab PO Q30M PRN PRN Reason: Loose Stool/Diarrhea Stop: 11/18/24 18:57 Gabapentin (Gabapentin 300 Mg Cap) 300 mg PO BID LOURDES Stop: 11/19/24 20:59 Last Admin: 10/23/24 08:38 Dose: 300 mg Gabapentin (Gabapentin 100 Mg Cap) 100 mg PO TID PRN PRN Reason: panic attack/anxiety Stop: 11/19/24 13:59 Hydroxyzine HCl (Hydroxyzine Hcl 25 Mg Tab) 50 mg PO HSZ PRN PRN Reason: Insomnia Stop: 11/18/24 18:57 Hydroxyzine HCl (Hydroxyzine Hcl 25 Mg Tab) 25 mg PO Q4H PRN PRN Reason: Anxiety Stop: 11/18/24 18:57 Magnesium Hydroxide (Magnesium Hydroxide Susp 30 Ml Udc) 30 ml PO DAILY PRN PRN Reason: Constipation Stop: 11/18/24 18:57 Mirtazapine (Mirtazapine Tab 15 Mg Tab) 15 mg PO HS LOURDES Stop: 11/19/24 21:59 Last Admin: 10/22/24 20:27 Dose: 15 mg Multivitamins/Minerals (Cerovite Adv Formula Tab) 1 tab PO QAM LOURDES Stop: 11/19/24 12:29 Last Admin: 10/23/24 08:38 Dose: 1 tab Naltrexone HCl (Naltrexone Hcl 50 Mg Tab) 25 mg PO DAILYBD LOURDES Stop: 11/20/24 17:14 Last Admin: 10/22/24 17:20 Dose: 25 mg Oxybutynin Chloride (Oxybutynin Chloride Xl 5 Mg Tabcr) 10 mg PO HS LOURDES Stop: 11/19/24 21:59 Last Admin: 10/22/24 20:26 Dose: 10 mg Propranolol HCl (Propranolol Hcl 10 Mg Tab) 10 mg PO TID LOURDES Stop: 11/19/24 13:59 Last Admin: 10/23/24 08:38 Dose: 10 mg Sodium Chloride (Sodium Chloride 0.65% Na Soln 45 Ml ([place])) 1 - 2 sprays NA PRN PRN PRN Reason: Nasal Dryness/Congestion Stop: 11/18/24 18:57 Thiamine HCl (Thiamine Hcl 50 Mg Tablet) 50 mg PO QAM OLURDES Stop: 11/19/24 12:29 Last Admin: 10/23/24 08:38 Dose: 50 mg Venlafaxine HCl (Venlafaxine Hcl Xr 75 Mg Capxr) 225 mg PO HS LOURDES Stop: 11/19/24 21:59 Last Admin: 10/22/24 20:25 Dose: 225 mg Vitamin D (Cholecalciferol 25 Mcg (1000 Units) Tab) 25 mcg PO QAM LOURDES Stop: 11/19/24 12:29 Last Admin: 10/23/24 08:38 Dose: 25 mcg Mental Health & Subst Abuse Tx Psychiatrist [facility] Date Of Appointment With Psychiatric Provider: 10/31/24 Time of Appointment with Psychiatrist: 9:15 Psychiatric Appointment Comment: Be there at 8:15 to complete paperwork prior to appointment Therapist Name of Therapist: [facility] - Wilda Bergman Therapist's Date of Therapist Appointment: 10/30/24 Time of Therapist Appointment: 9:30 am Therapy Appointment Comment: [address], [place] [id number] [address] Dependency Case Manager Name of Dependency Case Manager: n/a Time of Appointment with Dependency Case Manager: n/a Post Discharge Appointments Primary Care Physician Name Of Family Doctor/PCP: [facility] Date of Future Appointment with PCP: 10/31/24 Time of Appointment with PCP: 3:40p Provider Appointment Comment: [address], [place] [address] Contact Information Discharge Discharge Address: [facility] [address], [place] [id number]
[2024-10-23] MEDS: DOCUSATE SODIUM 100 MG CAP PO SCH (10:43)
[2024-10-23] MEDS: POLYETHYLENE (MIRALAX) 17 GM PACK PO SCH (14:50)
[2024-10-23] MEDS: NALTREXONE HCL 50 MG TAB PO SCH (17:12)
[2024-10-24 06:46] VITALS: O2SAT 99
[2024-10-24] MEDS: VENLAFAXINE HCL XR 75 MG CAPXR PO SCH (08:40)
--- NOTE | 2024-10-24 08:48 | Psychiatric Progress Note ---
Date of Service October 24, 2024 Impression / Recommendations Impression NU RAHMAN is a 54-year-old woman who currently lives in [place] with her and two children, has a history of anxiety and depression, and was admitted on 10/19/24 18:12 on a 201 voluntary commitment for worsening depression, anxiety and SI in the context of multiple stressors and previous venlafaxine withdrawal syndrome. Diagnostically consistent with major depressive disorder with anxious distress, generalized anxiety disorder with panic attacks, social anxiety disorder as well as alcohol use disorder with possible substance-induced mood symptoms as well as complicated bereavement. A: Mood improving, tolerating higher dose of naltrexone. Some sleep difficulty last night. Still with constipation, will try senna today and add additional laxatives if needed. MNPR due to contact precautions and need for private bathroom due to EColi with ESBL from urine culture Overall, I spent a total of 30 minutes on this case including meeting with the patient, reviewing the chart, nursing report, multidisciplinary team meeting, orders, and documentation and discussion with pharmacist. (1) Recurrent severe major depressive disorder with anxiety: (2) Depression with suicidal ideation: (3) Generalized anxiety disorder with panic attacks: (4) Social anxiety disorder: (5) Complicated bereavement: (6) Alcohol use disorder: (7) Carpal tunnel syndrome, right: (8) Overactive bladder: Plan 10/24/2024: -Senna prn for constipation 10/23/2024: -Increase naltrexone to 50mg qdinner -move effexor XR 225mg to QAM 10/22/2024: -Continue current medications and tx plan 10/21/2024: -Start naltrexone 25mg po with dinner 10/20/2024: The patient was admitted to the [facility] ([facility] mental [facility] unit) on q15 min checks (behavioral with suicide precautions) for safety. The patient will participate in group, recreational, and milieu therapies and will be offered additional individual and family sessions as clinically appropriate. -Increase Effexor XR to 225mg HS (she prefers HS dosing as limits GI upset) -Start mirtazapine 15mg HS -Start propranolol 10mg TID -Start gabapentin 300mg HS with 100mg TID prn for anxiety -Discontinue losartan -Consider naltrexone 25mg tomorrow with dinner -Start thiamine, multivitamin, Vit D -AWSS at risk for withdrawal -SW to explore options for outpatient therapy and potentially psychiatry Inventory Assets Strengths: supportive relationships, willing to get treatment Needs: safety and stabilization, medication adjustment, additional coping skills, increased outpatient services Suicide Risk Level Suicide Risk Level: Moderate (q15 min suicide checks) (increased depression and anxiety with SI APPLICATION COUNSELOR but now denies SI, mood improving, feels safe in the hospital and feels able to ask for support) Risk Factors Assessment Male: No : Yes Do You Have Access To A Gun?: Yes (n/a) Health Problems: Yes Mental Health Diagnoses: Yes Substance Use Disorders: Yes Previous Attempt: No Family History of Suicide: No Previous Psychiatric Hospitalization: No Hopelessness: Yes Protective Factors Assessment Mandaeism Beliefs: Yes : Yes Employed: Yes Stable Relationships: Yes Supportive Family: Yes Good Rapport with Provider: Yes Interval History Identifying Information NU RAHMAN is a 54-year-old woman who currently lives in [place] with her and two children, has a history of anxiety and depression, and was admitted on 10/19/24 18:12 on a 201 voluntary commitment for worsening depression, anxiety and SI. Chief Complaint "Good". Review of Systems Sleep Information Total Hours of Sleep: 8 Meal Information Percent Meal Consumed - Breakfast: 100 Percent Meal Consumed - Lunch: 75 Percent Meal Consumed - Dinner: 90 Subjective Subjective Patient was seen & assessed and interval progress reviewed with nursing and social work. attending groups, rated her mood as "thankful" yesterday. Today rates her mood as "good". Had a few awakenings last night but was able to fall back asleep pretty quickly, seemed to awaken from numbness from carpal tunnel. Finding medications helpful. Looking forward to meeting her casework supervisor. Physical Exam Psychiatric Orientation: alert and oriented x 3 Apperance: appropriately dressed and appropriately groomed Eye Contact: good eye contact Motor Behavior: no abnormal motor movements Speech: normal rate/rhythm/volume of speech Affect: + anxious affect Mood: + anxious mood Thought Process: goal directed thought process Thought Content: reality based without delusions Suicidal Thoughts: denies suicidal thoughts, denies suicidal plan and denies suicidal intent Homicidal Thoughts: denies homicidal thoughts Hallucinations: no auditory hallucinations and no visual hallucinations Cognition: recent memory grossly intact, remote memory grossly intact, attention grossly intact and language grossly intact Estimated Intelligence: consistent with education level Insight: good insight Judgment: + fair judgement Vital Signs (Past 24 Hours) Last Vital Signs Temp 36.1 C L 10/24/24 06:00 Pulse 56 L 10/24/24 06:00 Resp 16 10/24/24 06:00 BP 103/99 10/24/24 06:00 Pulse Ox 99 10/24/24 06:00 O2 Del Method Room Air 10/24/24 06:00 Results & Data ([facility]) Current Inpatient Medications Current Inpatient Medications: Current Inpatient Medications Acetaminophen (Acetaminophen 325 Mg Tab) 650 mg PO Q4H PRN PRN Reason: Headache or Minor Fever Stop: 11/18/24 18:57 Last Admin: 10/20/24 12:46 Dose: 650 mg Al Hydrox/Mg Hydrox/Simethicone (Aluminum/Magnesium Susp 30 Ml Udc) 30 ml PO Q4H PRN PRN Reason: GI Upset Stop: 11/18/24 18:57 Bismuth Subsalicylate (Bismuth Subsalicylate 262 Mg Chew) 2 tab PO Q30M PRN PRN Reason: Loose Stool/Diarrhea Stop: 11/18/24 18:57 Docusate Sodium (Docusate Sodium 100 Mg Cap) 100 mg PO BID LOURDES Stop: 11/22/24 09:29 Last Admin: 10/24/24 08:40 Dose: 100 mg Gabapentin (Gabapentin 300 Mg Cap) 300 mg PO BID LOURDES Stop: 11/19/24 20:59 Last Admin: 10/24/24 08:41 Dose: 300 mg Gabapentin (Gabapentin 100 Mg Cap) 100 mg PO TID PRN PRN Reason: panic attack/anxiety Stop: 11/19/24 13:59 Hydroxyzine HCl (Hydroxyzine Hcl 25 Mg Tab) 50 mg PO HSZ PRN PRN Reason: Insomnia Stop: 11/18/24 18:57 Hydroxyzine HCl (Hydroxyzine Hcl 25 Mg Tab) 25 mg PO Q4H PRN PRN Reason: Anxiety Stop: 11/18/24 18:57 Magnesium Hydroxide (Magnesium Hydroxide Susp 30 Ml Udc) 30 ml PO DAILY PRN PRN Reason: Constipation Stop: 11/18/24 18:57 Mirtazapine (Mirtazapine Tab 15 Mg Tab) 15 mg PO HS LOURDES Stop: 11/19/24 21:59 Last Admin: 10/23/24 20:53 Dose: 15 mg Multivitamins/Minerals (Cerovite Adv Formula Tab) 1 tab PO QAM LOURDES Stop: 11/19/24 12:29 Last Admin: 10/24/24 08:41 Dose: 1 tab Naltrexone HCl (Naltrexone Hcl 50 Mg Tab) 50 mg PO DAILYBD LOURDES Stop: 11/22/24 17:14 Last Admin: 10/23/24 17:12 Dose: 50 mg Oxybutynin Chloride (Oxybutynin Chloride Xl 5 Mg Tabcr) 10 mg PO HS LOURDES Stop: 11/19/24 21:59 Last Admin: 10/23/24 20:54 Dose: 10 mg Polyethylene Glycol (Polyethylene (Miralax) 17 Gm Pack) 17 gm PO DAILY LOURDES Stop: 11/22/24 14:44 Last Admin: 10/24/24 08:42 Dose: 17 gm Propranolol HCl (Propranolol Hcl 10 Mg Tab) 10 mg PO TID LOURDES Stop: 11/19/24 13:59 Last Admin: 10/24/24 08:41 Dose: Not Given Sennosides (Senna 8.6 Mg Tab) 17.2 mg PO DAILY PRN PRN Reason: constipation Stop: 11/23/24 08:59 Sodium Chloride (Sodium Chloride 0.65% Na Soln 45 Ml ([place])) 1 - 2 sprays NA PRN PRN PRN Reason: Nasal Dryness/Congestion Stop: 11/18/24 18:57 Thiamine HCl (Thiamine Hcl 50 Mg Tablet) 50 mg PO QAM LOURDES Stop: 11/19/24 12:29 Last Admin: 10/24/24 08:41 Dose: 50 mg Venlafaxine HCl (Venlafaxine Hcl Xr 75 Mg Capxr) 225 mg PO QAM LOURDES Stop: 11/23/24 08:59 Last Admin: 10/24/24 08:40 Dose: 225 mg Vitamin D (Cholecalciferol 25 Mcg (1000 Units) Tab) 25 mcg PO QAM LOURDES Stop: 11/19/24 12:29 Last Admin: 10/24/24 08:41 Dose: 25 mcg Mental Health & Subst Abuse Tx Psychiatrist [facility]rist's Date Of Appointment With Psychiatric Provider: 10/31/24 Time of Appointment with Psychiatrist: 9:15 Psychiatric Appointment Comment: Be there at 8:15 to complete paperwork prior to appointment Therapist Name of Therapist: [facility] - [facility] [facility]man Therapist's Date of Therapist Appointment: 10/30/24 Time of Therapist Appointment: 9:30 am Therapy Appointment Comment: [address], [place] [id number] [address] Rig Welder Name of Rig Welder: n/a Time of Appointment with Rig Welder: n/a Post Discharge Appointments Primary Care Physician Name Of Family Doctor/PCP: [facility] Primary [facility] Date of Future Appointment with PCP: 10/31/24 Time of Appointment with PCP: 3:40p Provider Appointment Comment: [address], [place] [address] Contact Information Discharge Discharge Address: [facility] [address], [place] [id number]
[2024-10-24 08:52] LABS: Marijuana Quant, GCMS Urine 1094 ng/mL (<5)
[2024-10-24] MEDS: SENNA 8.6 MG TAB PO PRN (14:04)
[2024-10-25 06:32] VITALS: TEMP 97.2
--- NOTE | 2024-10-25 08:51 | Discharge Summary ---
Date of Service October 25, 2024 History of Present Illness She presents for psychiatric admission for worsening depression, anxiety and SI in the context of multiple psychosocial stressors including family strain with siblings and her mother, of her brother, financial stress and new job of three weeks. Her depression and anxiety worsened after having to wean herself off of Effexor XR 150mg daily due to an insurance change in February 2024. By April her mood symptoms had spiraled to the point that she quit her job of 16 years due to increased stress and she thinks this was in large part due to feeling overwhelmed and inability to focus. She identifies this as a "breakdown". At the end of May she was able to get a new prescription for Effexor and got back to her previous dose and started to feel better by mid summer. But then she had to get a new job and this has been very overwhelming especially because "the medication isn't working like it was". Her job has given her intense anxiety due to being around so many people every day and the stress of having to do a lot on the computer. 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 She endorses depressive symptoms including social isolation, tearfulness, anhedonia, decreased motivation, self-guilt, helplessness, hopelessness, decreased appetite, and decreased sleep with difficulty falling and staying asleep. SI has been occurring since March. She endorses symptoms of anxiety including generalized worries, shakiness, muscle stiffness with headaches, stomach upset, easily overwhelmed and panic attacks every few days. Struggles a lot with social anxiety and low self-worth and low self-esteem. She also endorses PTSD symptoms of flashbacks. She reports having lost about 80lbs over the course of the year and now with restrictive eating. Hasn't eaten anything in two days. She typically eats yogurt for lunch and then eats a little bit at dinner. Some days she eats more. She struggles with moderation. Denies any purging. She drinks alcohol to feel "numb" or fall asleep. Most weekends she drinks almost all day (some weekends 3/4 of a bottle of vodka). Before starting her new job she went 5 days without alcohol and a few days after starting work but then as she got into a routine she started drinking in the evenings again. Typically 2-4 shots of liquor starting around 4pm. She didn't drink any alcohol for almost 20 years but she started drinking heavily after her brother 5 years ago to cope with grief. She is currently prescribed Effexor 150mg HS. Psychiatric ROS notable for no current nor history of symptoms of kar, psychosis, OCD nor eating disorder. History of restrictive eating. No history of self-harm. Physical Exam Vital Signs (Past 24 Hours) Last Vital Signs Temp 36.2 C L 10/25/24 06:30 Pulse 64 10/25/24 06:32 Resp 16 10/25/24 06:30 BP 126/86 10/25/24 06:32 Pulse Ox 99 10/24/24 14:46 O2 Del Method Room Air 10/24/24 14:46 Principal Diagnosis Major Depressive Disorder with anxious distress Psychiatric Data See daily stay summary. In short, patient was engaged with the social/therapeutic milieu of the unit, safety was maintained and the patient was cooperative with care. Medication changes included titration of Effexor XR to 225mg for MDD/OUMAR, initiation of mirtazapine 15mg HS for insomnia/MDD/OUMAR, initiation of naltrexone 50mg daily for alcohol use disorder, initiation of propranolol 10mg TID for off-label use for OUMAR and gabapentin 300mg BID for carpel tunnel pain and off-lablel for alcohol use and anxiety and they tolerated this well. A support session was held and safety plan was completed prior to discharge. They participated in safety planning and in discussions about ways to seek support and recognizing warning signs and utilizing coping skills. Reviewed ways to have their safety plan and contacts easily available should thoughts of SI re-emerge in the future. Reviewed importance of seeking emergency care should SI intensify, worsen or should they feel unsafe in the future which they agree to do. On the day of discharge they stated their mood was "good" and "eager" and remained future-oriented including being outside, walking with her dogs, spending time with her family and engaging in aftercare appointments for psychiatry, therapy and case management. Day of Discharge Assessment Today the patient voices readiness for discharge. They note improvement in mood and anxiety. They deny thoughts of harm to self or others. Thoughts remain organized and they are clinically improved from admission. There is no evidence of psychosis. They improved in the hospital with support and medication adjustments. They agree to take medications as prescribed and keep follow-up appointments. At the time of the discharge they are deemed to be stable and appropriate for outpatient level of care. They are not deemed to be at imminent risk of harm to self or others. They are aware of emergency and crisis services. Knows to call 911 or go to nearest emergency care center if in a crisis which cannot be handled as an outpatient. Suicide risk assessment: Acute risk is low given improvement in mood and denial of SI, lack of access to lethal means, plan to avoid substance use, improvement in sleep, hopefulness. Chronic risk is low to moderate given some non-modifiable risk factors: psychiatric co-morbid diagnoses but also with protective factors including: employed, good social support, sense of responsibility to family and social supports, outpatient care in place, positive coping skills, positive problem solving, willingness to engage with treatment and self-observation. Counseled on ways to reduce acute and chronic risk including engaging with outpatient providers, using safety plan if needed, utilizing supports, taking medication, and using coping skills. Modifiable risk factors of SI, anxiety, insomnia and depression were addressed during hospitalization through development of new coping skills, support meeting, safety planning, and medication adjustments. Discharge physical exam: See admission H&P, MSE per above and day of discharge summary. Overall, I spent a total of 35 minutes on this case including meeting with the patient, reviewing the chart, nursing report, multidisciplinary team meeting, discharge orders, anticipatory planning, safety planning, risk assessment and documentation. Transition of Care Transition Of Care Record: was reviewed with the patient Advance Directives Advance Directives Information Provided: Yes Advance Directives: No Mental Health Advance Directive: No Advance Directives on File: No Living Will: No Power of Compounding Scaler: No Advance Directives Reason:: Declines as Mental Health Visit. Suicide Risk Level Suicide Risk Level Comments: see assessment above Risk Factors Assessment Male: No : Yes Do You Have Access To A Gun?: No Health Problems: Yes Mental Health Diagnoses: Yes Substance Use Disorders: Yes Previous Attempt: No Family History of Suicide: No Previous Psychiatric Hospitalization: No Hopelessness: No Protective Factors Assessment Syn[employer] Beliefs: Yes : Yes Employed: Yes Stable Relationships: Yes Supportive Family: Yes Good Rapport with Provider: Yes Discharge Data Lab Results 10/19/24 10/19/24 10/19/24 14:24 14:56 Unknown WBC 8.62 RBC 4.53 Hgb 13.6 Hct 39.9 MCV 88.1 MCH 30.0 MCHC 34.1 RDW Std Deviation 39.4 RDW Coeff of Roseann 12.2 Plt Count 215 MPV 10.3 Immature Gran % (Auto) 0.3 Neut % (Auto) 81.1 Lymph % (Auto) 12.2 [place] % (Auto) 6.1 Eos % (Auto) 0.1 Baso % (Auto) 0.2 Neut # (Auto) 6.98 H Lymph # (Auto) 1.05 L [place] # (Auto) 0.53 Eos # (Auto) 0.01 Baso # (Auto) 0.02 Immature Gran # (Auto) 0.03 Sodium 136 Potassium 4.0 Chloride 101 Carbon Dioxide 26 Anion Gap 9 BUN 17 Creatinine 0.83 Est Cr Clr Drug Dosing 64.1 eGFR 83.72 BUN/Creatinine Ratio 20.5 H Glucose 119 H Calcium 9.4 Total Bilirubin 0.6 AST 20 ALT 17 Alkaline Phosphatase 54 Total Protein 6.7 Albumin 4.3 Globulin 2.4 L Albumin/Globulin Ratio 1.8 TSH 0.403 Urine Color Yellow Urine Appearance Cloudy A Urine pH 5.5 Ur Specific [place] 1.023 Urine Protein 2+ H Urine Glucose (UA) Negative Urine Ketones Trace H Urine Blood Negative Urine Nitrite Positive A Urine Bilirubin Negative Urine Urobilinogen Negative Ur Leukocyte Esterase 1+ H Urine WBC (Auto) 11-20 H Urine RBC (Auto) 0-2 U Hyaline Cast (Auto) >20 H U Epithel Cells (Auto) 11-20 H Urine Bacteria (Auto) 3+ H Calcium Oxalate Crystal Present A Hyaline Casts Present A Urine Mucus Present A Urine Comment Salicylates < 3.0 L Urine Opiates Screen Neg Ur Methadone, Qual Neg Urine Fentanyl Screen Neg Acetaminophen < 3 L Urine Barbiturates Neg Ur Phencyclidine (PCP) Neg U Amphetamin/Meth Scrn Neg MDMA (Ecstasy) Screen Neg U Benzodiazepines Scrn Neg Ur Cocaine Metabolite Neg U Marijuana (THC) Screen Pos H U Marijuana THC Carboxy 1094 H Drug Screen Comment SEE NOTE Ethyl Alcohol mg/dL < 10.0 SARS-CoV-2, RNA, NAAT NEGATIVE Hospital Course (1) Recurrent severe major depressive disorder with anxiety: (2) Depression with suicidal ideation: (3) Generalized anxiety disorder with panic attacks: (4) Social anxiety disorder: (5) Complicated bereavement: (6) Alcohol use disorder: (7) Carpal tunnel syndrome, right: (8) Overactive bladder: Plan 10/25/2024: Feels safe and desires discharge 10/24/2024: -Senna prn for constipation 10/23/2024: -Increase naltrexone to 50mg qdinner -move effexor XR 225mg to QAM 10/22/2024: -Continue current medications and tx plan 10/21/2024: -Start naltrexone 25mg po with dinner 10/20/2024: The patient was admitted to the [facility] ([facility] unit) on q15 min checks (behavioral with suicide precautions) for safety. The patient will participate in group, recreational, and milieu therapies and will be offered additional individual and family sessions as clinically appropriate. -Increase Effexor XR to 225mg HS (she prefers HS dosing as limits GI upset) -Start mirtazapine 15mg HS -Start propranolol 10mg TID -Start gabapentin 300mg HS with 100mg TID prn for anxiety -Discontinue losartan -Consider naltrexone 25mg tomorrow with dinner -Start thiamine, multivitamin, Vit D -AWSS at risk for withdrawal -SW to explore options for outpatient therapy and potentially psychiatry Mental Health & Subst Abuse Tx Psychiatrist Name of Psychiatrist: Irma Navarro- [facility] (arrive at 8:15 for paperwork) Psychiatrist's Date Of Appointment With Psychiatric Provider: 10/31/24 Time of Appointment with Psychiatrist: 9:15AM Psychiatric Appointment Comment: [address] [place] [address] Therapist Name of Therapist: [facility] - Wilda Bergman Therapist's Date of Therapist Appointment: 10/30/24 Time of Therapist Appointment: 9:30 am Therapy Appointment Comment: [address], [place] [address] On the Second Floor Recruitment Director Name of Recruitment Director: [facility] Phone Number for Recruitment Director: [phone] Time of Appointment with Recruitment Director: n/a Case Management Appointment Comment: hospitality manager will contact you for scheduling Post Discharge Appointments Primary Care Physician [facility] Date of Future Appointment with PCP: 10/31/24 Time of Appointment with PCP: 3:40p Provider Appointment Comment: [address], [place] [address] Contact Information Discharge Discharge Address: [address], [place] [address] Discharge Plan Discharge Items Patient Disposition: Home - Self-Care Reason For Visit: UNSPECIFIED DEPRESSIVE Discharge Diagnosis: Major Depressive Disorder with anxious distress Condition on Discharge: Fair Activity: Resume your previous activity Non-emergency contact: Primary Care Provider, Psychiatrist, Therapist and Mold Runner Call non-emergency contact if: you have any medication questions and your symptoms worsen Follow-up/Referrals: Swetha Grant CRNP [Primary Care Provider] - Diet: Regular Addtl Attending Provider Instructions: Optional mobile apps we discussed: -Suicide safety plan -Virtual Hope Box SPECIAL CARE INSTRUCTIONS: 1. Follow through with your scheduled aftercare appointments. If unable to keep an appointment, please call to reschedule. 2. Take your medication only as prescribed. Medication should not be changed or stopped without the approval of your doctor. In the event of worsening symptoms or concerns about side effects, contact your doctor immediately. 3. Utilize new healthy coping skills, anger management skills, and stress management skills learned during your hospitalization. Journal feelings and process them with a support person. Identify stressors or situations that may result in relapse, deterioration or inappropriate behaviors and develop a plan to deal with those issues. 4. If your coping skills are ineffective and you are in crisis, contact your outpatient providers for direction. If unable to reach your providers, please call the [facility] CRISIS LINE AT , go to the [facility] walk-in center at [address], [address], [place], or go to the closest Emergency Room. 5. Avoid alcohol and un-prescribed drugs. 6. You have been provided with the Mental Health Advance Directives Pamphlet for your review. 7. Your condition is stable for discharge to outpatient level of care, but recovery is an ongoing process. Ifthoughts to harm yourself or others return, follow the safety plan developed during your stay. Planning for a safe return home includes securing weapons. Our treatment team recommends weaponsbe removed from the home until your outpatient provider reassesses your progress. In rare cases where the items themselvescannot be removed, guns and ammunitionshould be secured separatelyand keys stored by a reliable personoutside of the home. If you were admitted on an involuntary commitment, the police or other legal authorities may be involved in this process. AFTERCARE APPOINTMENTS: * Please call your insurance company prior to your scheduled appointment to confirm your aftercare providers are covered. Take your insurance information to your appointments. WHO TO CALL AND WHEN: Medical Emergencies: For questions or emergencies related to your hospital stay, please contact the Inpatient Behavioral Health Unit at [phone]. A probation officer is on-call 29/08 for the Behavioral Health Unit for emergencies At any time you feel your situation is an emergency, you may also call 911 immediately. National Crisis Hotline: 325 Pending Studies at Discharge: No Stand-Alone Forms: My [facility] Medications and DC Order Prescriptions: New propranolol 10 mg Tablet 10 mg PO TID 30 Days Qty: 90 0RF gabapentin 300 mg Capsule 300 mg PO BID 30 Days Qty: 60 0RF naltrexone 50 mg Tablet 50 mg PO DAILYBD 30 Days Qty: 30 0RF mirtazapine 15 mg Tablet 15 mg PO HS 30 Days Qty: 30 0RF venlafaxine 225 mg tablet extended release 24hr 225 mg PO DAILY 30 Days Qty: 30 0RF cholecalciferol (vitamin D3) 10 mcg (400 unit) capsule 10 mcg PO DAILY 30 Days Qty: 30 0RF Continued oxybutynin chloride 10 mg tablet extended release 24hr 10 mg PO HS Discontinued losartan 100 mg tablet 50 mg PO DAILY Qty: 90 1RF venlafaxine 150 mg tablet extended release 24hr 150 mg PO HS Rx Instructions: Pharmacist will be dispensing CAPS as cheaper for patient / SDL Discharge Orders: Discharge Order (Routine); Ordered 10/25/24 Ordered By: Marley Coleman Admission Data Admit Date/Time: 10/19/24 18:12 Attending Provider: Marley Coleman Admit Provider: Marley Coleman Primary Care Provider: Swetha Grant Other Interventions: Discharge Summary Assessment (RN) Last Done: 10/25/24 09:48 Coding Level of Care Code 19337 D/C day mgmt > 30 min Diagnoses Recurrent severe major depressive disorder with anxiety F33.2; F41.9 Depression with suicidal ideation F32.A; R45.851 Generalized anxiety disorder with panic attacks F41.1; F41.0 Social anxiety disorder F40.10 Complicated bereavement F43.21 Alcohol use disorder F10.90 Carpal tunnel syndrome, right G56.01 Overactive bladder N32.81
[2024-10-25 09:51] VITALS: BP 134/82; PULSE 69
== END 2024-10-25 11:27 | disposition home or self-care (01) | DRG 885 ==
LOC: ED 14:05 → 3S 18:12